=== PATIENT | female | born 1950 | race Hispanic/Latino ===

== ENCOUNTER 2018-02-06 12:55 | Observation (INO) | payer MEDICARE ==
[2018-02-06] MEDS ORDERED: ASPIRIN 81 MG CHEWABLE TABLET ONE (13:46)
[2018-02-06 13:56] LABS: Absolute Lymphocytes (CBC) 1.8 K/uL (0.7-4.9); Absolute Monocytes 0.3 K/uL (0.1-1.3); Absolute Neutrophil 2.9 K/uL (1.8-8.0); Basophils % 1.1 % (0-1.3); Eosinophils % 2.3 % (0-4.4); Hematocrit 42.2 % (36.0-45.0); Lymphocytes % 34.8 % (15.3-44.8); MCH 29.4 pg (27.0-35.0); MCV 86.9 fL (80-100); MPV 9.2 fL (7.6-11.3); Monocytes % 5.2 % (3.3-12.3); RBC Red Blood Cell Count 4.85 M/uL (3.86-4.86)
--- NOTE | 2018-02-06 13:56 | RAD REPORT ---
EXAM DESCRIPTION: RAD - Chest Single View - 02/06/2018 1:50 pm CLINICAL HISTORY: CHEST PAIN Chest pain. COMPARISON: CHEST SINGLE VIEW dated 05/20/2011; CHEST SINGLE VIEW dated 04/23/2009 FINDINGS: Portable technique limits examination quality. The lungs are grossly clear. The heart is normal in size. No displaced fractures. IMPRESSION: No acute intrathoracic process suspected.
[2018-02-06 14:08] LABS: ALT/SGPT 22 U/L (12-78); AST/SGOT 18 U/L (15-37); Alkaline Phosphatase 88 U/L (45-117); BUN Blood Urea Nitrogen 14 mg/dL (7-18); Bicarbonate 27 mmol/L (21-32); Bilirubin Direct 0.2 mg/dL (0-0.2); Bilirubin Total 0.6 mg/dL (0.2-1.0); CKMB Creatine Kinase MB 1.3 ng/mL (0.3-3.6); Creatine Phosphokinase 88 U/L (26-192); Glucose Level 96 mg/dL (74-106); Magnesium 2.5 mg/dL (1.8-2.4); NT PRO-BNP 73 pg/mL (<125); Protein, Total 7.8 g/dL (6.4-8.2); Sodium Level 140 mmol/L (136-145); Troponin (Emerg Dept Use Only) < 0.02 ng/mL (0.0-0.045)
[2018-02-06 14:25] LABS: Protime INR 1.02
--- NOTE | 2018-02-06 14:32 | EDPHYS ---
Physician Documentation [facility] Name: Jenn Woods Age: 67 yrs Sex: Female : 1950 Arrival Date: 02/06/2018 Time: 13:00 Bed 27 Private MD: None, None ED Physician Merry Neely HPI: 02/06 13:18 This 67 yrs old Female presents to ER via Ambulatory with complaints of Chest ma2 Pain. 13:18 The patient or guardian reports chest pain that is located primarily in the substernal ma2 area. Onset: gradually, 1 hour(s) ago. The pain does not radiate. Associated signs and symptoms: Pertinent negatives: abdominal pain, diaphoresis, headache, lower extremity pain, nausea, shortness of breath, syncope, vomiting. The chest pain is described as a pressure. Duration: The patient or guardian reports multiple episodes, that wax and wane. Severity of pain: At its worst the pain was moderate. The patient has not experienced similar symptoms in the past. Historical: - Allergies: 13:08 No Known Allergies; aa5 - Home Meds: 13:47 unknown cholesterol medication [Active]; aspirin 81 mg Oral TbEC [Active]; kr2 - PMHx: 13:08 PRE DIABETIC; Arthritis; High Cholesterol; aa5 - PSHx: 13:08 c section; saundra knees; aa5 - Immunization history:: Adult Immunizations unknown. - Social history:: Patient/guardian denies using alcohol, street drugs, The patient lives with family, Smoking status: Patient/guardian denies using tobacco. - Ebola Screening: : No symptoms or risks identified at this time. - Family history:: pertinent for heart disease. ROS: 13:18 Constitutional: Negative for fever, chills, and weight loss, Abdomen/GI: Negative for ma2 abdominal pain, nausea, diarrhea, and constipation, MS/Extremity: Negative for injury and deformity. 13:18 Cardiovascular: Positive for chest pain, Negative for edema, palpitations, paroxysmal nocturnal dyspnea, acute changes. 13:18 All other systems are negative. Exam: 13:18 Constitutional: This is a well developed, well nourished patient who is awake, alert, ma2 and in no acute distress. Neck: Trachea midline, no thyromegaly or masses palpated, and no cervical lymphadenopathy. Supple, full range of motion without nuchal rigidity, or vertebral point tenderness. No Meningismus. Chest/axilla: Normal chest wall appearance and motion. Nontender with no deformity. No lesions are appreciated. Cardiovascular: Regular rate and rhythm with a normal S1 and S2. No gallops, murmurs, or rubs. Normal PMI, no JVD. No pulse deficits. Respiratory: Lungs have equal breath sounds bilaterally, clear to auscultation and percussion. No rales, rhonchi or wheezes noted. No increased work of breathing, no retractions or nasal flaring. MS/ Extremity: Pulses equal, no cyanosis. Neurovascular intact. Full, normal range of motion. Neuro: Awake and alert, GCS 15, oriented to person, place, time, and situation. Cranial nerves II-XII grossly intact. Motor strength 5/5 in all extremities. Sensory grossly intact. Cerebellar exam normal. Normal gait. Vital Signs: 13:04 BP 156 / 69; Pulse 65; Resp 16 S; Temp 98.1(O); Pulse Ox 95% on R/A; Weight 81.65 kg aa5 (R); Height 5 ft. 3 in. (160.02 cm) (R); Pain 4/10; 14:16 BP 121 / 80; Pulse 68; Resp 17; Pulse Ox 99% on R/A; kr2 15:43 BP 123 / 66; Pulse 58; Resp 16; Temp 98.2; Pulse Ox 99% on R/A; kr2 13:04 Body Mass Index 31.89 (81.65 kg, 160.02 cm) aa5 MDM: 13:08 Patient medically screened. ma2 13:18 Differential diagnosis: acute pericarditis, anxiety, coronary artery disease chest wall ma2 pain, gastroesophageal reflux disease (GERD). HEART Score: History: Highly Suspicious (2), ECG: Age: > or = 65 years (2), Risk Factors: > or = 3 Risk factors for atherosclerotic disease (2), [Hypertension] [DM] [+ Family HX] Total Score =. The patient was given aspirin in the Emergency Department. NICK Risk Score: 1 - patient's age is greater or equal to 65 years, 1 - Three or more CAD risk factors. Data reviewed: vital signs, nurses notes, EMS record, EKG, radiologic studies. Counseling: I had a detailed discussion with the patient and/or guardian regarding: the historical points, exam findings, and any diagnostic results supporting the discharge/admit diagnosis, the presence of at least one elevated blood pressure reading (>120/80) during this emergency department visit. 02/06 13:18 Order name: Basic Metabolic Panel; Complete Time: 14:27 ma2 02/06 13:18 Order name: CBC with Diff; Complete Time: 14:04 ma2 02/06 13:18 Order name: Ckmb; Complete Time: 14:27 ma2 02/06 13:18 Order name: CPK; Complete Time: 14:27 ma2 02/06 13:18 Order name: LFT's; Complete Time: 14:27 ma2 02/06 13:18 Order name: Magnesium; Complete Time: 14:27 ma2 02/06 13:18 Order name: NT PRO-BNP; Complete Time: 14:27 ma2 02/06 13:18 Order name: PT-INR ny2 02/06 13:18 Order name: Ptt, Activated ma2 02/06 13:18 Order name: Troponin (emerg Dept Use Only); Complete Time: 14:27 ma2 02/06 14:35 Order name: Basic Metabolic Panel EDMS 02/06 14:35 Order name: Basic Metabolic Panel EDMS 02/06 14:35 Order name: CBC with Automated Diff EDMS 02/06 14:35 Order name: CBC with Automated Diff EDMS 02/06 13:18 Order name: XRAY Chest (1 view); Complete Time: 14:04 ny2 02/06 13:18 Order name: EKG; Complete Time: 13:19 ny2 02/06 13:18 Order name: Cardiac monitoring; Complete Time: 13:38 ma2 02/06 13:18 Order name: EKG - Nurse/Tech; Complete Time: 13:38 ny2 02/06 13:18 Order name: IV Saline Lock; Complete Time: 13:38 ma2 02/06 13:18 Order name: Labs collected and sent; Complete Time: 13:38 ma2 02/06 13:18 Order name: O2 Per Protocol; Complete Time: 13:39 ma2 02/06 14:35 Order name: Regular EDMS 02/06 14:35 Order name: EKG Electrocardiogram EDMS 02/06 14:35 Order name: EKG Electrocardiogram EDMS 02/06 14:35 Order name: EKG Electrocardiogram [facility] 02/06 14:35 Order name: EKG Electrocardiogram [facility] 02/06 14:35 Order name: Troponin I [facility] 02/06 14:35 Order name: Troponin I [facility] 02/06 14:35 Order name: Troponin I [facility] 02/06 13:18 Order name: O2 Sat Monitoring; Complete Time: 13:39 ma2 Administered Medications: 13:42 Drug: Aspirin Chewable Tablet 324 mg Route: PO; kr2 14:30 Follow up: Response: No adverse reaction kr2 Disposition: 02/06/18 14:31 Hospitalization ordered by Anthony Baez for Observation. Preliminary diagnosis is Chest pain, unspecified. - Bed requested for Telemetry/MedSurg (observation). - Status is Observation. kr2 - Condition is Stable. - Problem is new. - Symptoms are unchanged. UTI on Admission? No Signatures: Dispatcher [employer] [facility] BeccadanielLeela Audri, RN RN aa5 Apryl Barros RN RN kr2 Merry Neely MD MD ma2 Corrections: (The following items were deleted from the chart) 15:19 14:31 Hospitalization Ordered by Anthony Baez DO for Observation. Preliminary bd diagnosis is Chest pain, unspecified. Bed requested for Telemetry/MedSurg (observation). Status is Observation. Condition is Stable. Problem is new. Symptoms are unchanged. UTI on Admission? No. ma2 16:06 15:19 02/06/2018 14:31 Hospitalization Ordered by Anthony Baez DO for Observation. kr2 Preliminary diagnosis is Chest pain, unspecified. Bed requested for Telemetry/MedSurg (observation). Status is Observation. Condition is Stable. Problem is new. Symptoms are unchanged. UTI on Admission? No. bd
--- NOTE | 2018-02-06 14:32 | ER ---
Nurse's Notes [facility] Name: Jenn Woods Age: 67 yrs Sex: Female : 1950 Arrival Date: 02/06/2018 Time: 13:00 Bed 27 Private MD: None, None Diagnosis: Chest pain, unspecified Presentation: 02/06 13:03 Presenting complaint: Patient states: mid-sternal chest pressure radiating to back that aa5 began 4 days ago. 13:03 Transition of care: patient was not received from another setting of care. Onset of aa5 symptoms was January 2018. Risk Assessment: Do you want to hurt yourself or someone else? Patient reports no desire to harm self or others. Initial Sepsis Screen: Does the patient meet any 2 criteria? No. Patient's initial sepsis screen is negative. Does the patient have a suspected source of infection? No. Patient's initial sepsis screen is negative. Care prior to arrival: None. 13:03 Method Of Arrival: Ambulatory aa5 13:03 Acuity: KRISTINA 3 aa5 Historical: - Allergies: 13:08 No Known Allergies; aa5 - Home Meds: 13:47 unknown cholesterol medication [Active]; aspirin 81 mg Oral TbEC [Active]; kr2 - PMHx: 13:08 PRE DIABETIC; Arthritis; High Cholesterol; aa5 - PSHx: 13:08 c section; saundra knees; aa5 - Immunization history:: Adult Immunizations unknown. - Social history:: Patient/guardian denies using alcohol, street drugs, The patient lives with family, Smoking status: Patient/guardian denies using tobacco. - Ebola Screening: : No symptoms or risks identified at this time. - Family history:: pertinent for heart disease. Screenin:10 Abuse screen: Denies threats or abuse. Denies injuries from another. Nutritional kr2 screening: No deficits noted. Tuberculosis screening: No symptoms or risk factors identified. Fall Risk None identified. Assessment: 13:10 General: Appears in no apparent distress. uncomfortable, well groomed, well developed, kr2 well nourished, Behavior is calm, cooperative, appropriate for age. Pain: Complains of pain in mid-sternal area Pain radiates to left scapular area Pain currently is 3 out of 10 on a pain scale. Quality of pain is described as pressure, Pain began 4 days ago Is continuous, Alleviated by nothing. Neuro: Level of Consciousness is awake, alert, obeys commands, Oriented to person, place, time, situation. Cardiovascular: Capillary refill < 3 seconds in bilateral fingers Patient's skin is warm and dry. Respiratory: Airway is patent Respiratory effort is even, unlabored, Respiratory pattern is regular, symmetrical. GI: Abdomen is flat, non-distended, Bowel sounds present X 4 quads. : Denies burning with urination. EENT: Oral mucosa is moist. Derm: Skin is intact, is healthy with good turgor, Skin is pink, warm \T\ dry. Musculoskeletal: Circulation, motion, and sensation intact. 14:16 Reassessment: Patient appears in no apparent distress at this time. Patient and/or kr2 family updated on plan of care and expected duration. Pain level reassessed. Patient is alert, oriented x 3, equal unlabored respirations, skin warm/dry/pink. Patient states feeling better. 15:43 Reassessment: Patient appears in no apparent distress at this time. Patient and/or kr2 family updated on plan of care and expected duration. Pain level reassessed. Patient is alert, oriented x 3, equal unlabored respirations, skin warm/dry/pink. Report called to receiving nurse Jones Mariano RN. Vital Signs: 13:04 BP 156 / 69; Pulse 65; Resp 16 S; Temp 98.1(O); Pulse Ox 95% on R/A; Weight 81.65 kg aa5 (R); Height 5 ft. 3 in. (160.02 cm) (R); Pain 4/10; 14:16 BP 121 / 80; Pulse 68; Resp 17; Pulse Ox 99% on R/A; kr2 15:43 BP 123 / 66; Pulse 58; Resp 16; Temp 98.2; Pulse Ox 99% on R/A; kr2 13:04 Body Mass Index 31.89 (81.65 kg, 160.02 cm) aa5 ED Course: 13:00 Patient arrived in ED. mr 13:00 None, None is Private Physician. mr 13:03 Apryl Barros, MOO is Primary Nurse. kr2 13:03 Arm band placed on Patient placed in an exam room, on a stretcher. aa5 13:08 Merry Neely MD is Attending Physician. ma2 13:09 Triage completed. aa5 13:12 EKG done, by radio frequency technician. reviewed by Michi Anderson MD. 3 13:15 Patient has correct armband on for positive identification. Placed in gown. Bed in low kr2 position. Call light in reach. Side rails up X 1. Adult w/ patient. crystal growing technician on. Pulse ox on. NIBP on. 13:15 Inserted saline lock: 20 gauge in right antecubital area, using aseptic technique. kr2 Blood collected. Patient maintains SpO2 saturation greater than 95% on room air. 13:50 XRAY Chest (1 view) In Process Unspecified. EDMS 14:30 Anthony Baez DO is Hospitalizing Provider. ma2 15:40 No provider procedures requiring assistance completed. Patient admitted, IV remains in kr2 place. Administered Medications: 13:42 Drug: Aspirin Chewable Tablet 324 mg Route: PO; kr2 14:30 Follow up: Response: No adverse reaction kr2 Outcome: 16:05 Admitted to Tele accompanied by nurse, via wheelchair, room 425, with chart, Report kr2 called to Jones Mariano RN 16:05 Condition: stable 16:05 Instructed on the need for admit, Demonstrated understanding of instructions. 16:06 Patient left the ED. kr2 Signatures: Dispatcher [employer] Sofy Brewster Audri, RN RN aa5 Apryl Barros RN RN kr2 Merry Neely MD MD ky2 Ammy Barrett 3 Corrections: (The following items were deleted from the chart) 15:40 14:31 Decision to Hospitalize by Provider. ma2 kr2
[2018-02-06] MEDS ORDERED: ACETAMINOPHEN 500 MG TAB PO PRN (14:33)
[2018-02-06] MEDS ORDERED: ALPRAZOLAM 0.25 MG TABLET PO PRN (14:44)
[2018-02-06] MEDS ORDERED: HYDRALAZINE HCL 20 MG/ML VIAL IV PRN (14:44)
[2018-02-06] MEDS ORDERED: NITROGLYCERIN 0.4 MG/TAB SL PRN (14:44)
[2018-02-06] MEDS ORDERED: ONDANSETRON 4 MG/2 ML VIAL IV PRN (14:44)
[2018-02-06] MEDS ORDERED: TRAMADOL HCL 50 MG TAB PO PRN (14:44)
--- NOTE | 2018-02-06 15:20 | P.HP ---
Certification for Inpatient Patient admitted to: Observation With expected LOS: <2 Midnights Patient will require the following post-hospital care: None Practitioner: I am a practitioner with admitting privileges, knowledge of patient current condition, hospital course, and medical plan of care. Services: Services provided to patient in accordance with Admission requirements found in Title 42 Section 412.3 of the Code of Federal Regulations Patient History Date of Service: 02/06/18 Primary Care Provider: Edgar García Reason for admission: Chest pain History of Present Illness: 67-year-old female presented to the emergency room with chest pain. Chest pain has been occurring over the last 4 days. It comes and goes. It is mainly to the substernal region. It feels more like a pressure like sensation. It is associated with headaches, shortness of breath and palpitations. She reports no nausea. Patient with no prior history of diabetes or hypertension. Patient reports that she has had increased anxiety with some family dysfunction going on. In the ER patient evaluated. Initial blood pressure was slightly elevated. Overall CBC unremarkable. Sodium 140, potassium 4.0. Initial cardiac enzymes unremarkable with a troponin of less than 0.02. No significant EKG changes noted. Chest x-ray unremarkable. Patient was admitted for observation. When I saw the patient the ER, she appeared stable. No chest pain was noted. She was given aspirin in the emergency room. She is a former smoker. Patient primarily takes multi vitamin, fish oil, pro biotics and Claritin. Patient drinks on occasion. Family history of hypertension. Allergies No Known Allergies Allergy (Unverified 06/21/17 10:33) Home medications list reviewed: Yes - Past Medical/Surgical History Diabetic: No -: Hyperlipidemia -: -: Bilateral knee surgery Psychosocial/ Personal History: Patient is . She has 4 children. She works as a under ground miner. - Family History Mother -: Hypertension - Social History Smoking Status: Former smoker Alcohol use: Yes CD- Drugs: No Caffeine use: Yes Place of Residence: Home Review of Systems General: As per HPI Eyes: Unremarkable ENT: Unremarkable Respiratory: Shortness of Breath, As per HPI Cardiovascular: Chest Pain, Palpitations, Light Headedness, As per HPI Gastrointestinal: Unremarkable Genitourinary: Unremarkable Musculoskeletal: Unremarkable Integumentary: Unremarkable Neurological: Unremarkable Lymphatics: Unremarkable Physical Examination - Physical Exam General: Alert, In no apparent distress, Oriented x3, Cooperative HEENT: Atraumatic, Normocephalic, PERRLA, Mucous membr. moist/pink Neck: Supple, No Thyromegaly Respiratory: Clear to auscultation bilaterally, Normal air movement Cardiovascular: Normal pulses, Regular rate/rhythm Gastrointestinal: Normal bowel sounds, Soft and benign, Non-distended, No tenderness, No masses, No rebound, No guarding Musculoskeletal: No erythema, No tenderness, No warmth Integumentary: No tenderness/swelling, No erythema, No warmth, No cyanosis Neurological: Normal speech, Normal strength at 5/5 x4 extr, Normal tone, Normal affect Lymphatics: No axilla or inguinal lymphadenopathy - Studies Laboratory Data (last 24 hrs) 02/06/18 13:15: PT 12.0, INR 1.02, APTT 35.3 02/06/18 13:15: WBC 5.1, Hgb 14.3, Hct 42.2, Plt Count 272 02/06/18 13:15: Sodium 140, Potassium 4.0, BUN 14, Creatinine 0.80, Glucose 96, Magnesium 2.5 H, Total Bilirubin 0.6, AST 18, ALT 22, Alkaline Phosphatase 88 Assessment and Plan - Plan Impression: Chest pain, atypical. Slightly elevated blood pressure without history of hypertension Hyperlipidemia Former tobacco use Anxiety Plan: Patient will be admitted for observation to further assess her chest pain. Likely atypical. Risk factors include age, female and family history of hypertension. Will continue to monitor cardiac enzymes. Will check echocardiogram. Cardiology consulted to further assess. Patient may require cardiac stress tests versus outpatient stress test if cardiac enzymes unremarkable. Will monitor her blood pressures closely if elevated may need to start medication. Patient started on statin medication. Will check lipid panel. It is been quite some time since the patient last smoked. She continues to do well on this. Patient reports anxiety. Some family dysfunction noted counseling. I will turn the service over to Dr. Wild tomorrow. I will go over the plan of care with her. Discharge Plan: Home Plan to discharge in: 24 Hours - Advance Directives Does patient have a Living Will: No Does patient have a Durable POA for Healthcare: No - Code Status/Comfort Care Code Status Assessed: Yes (Patient full code) Time Spent Managing Pts Care (In Minutes): 55
[2018-02-06] MEDS: ENOXAPARIN 40 MG/0.4 ML SQ SCH (17:02)
[2018-02-06] MEDS ORDERED: ATORVASTATIN 40 MG TAB PO SCH (21:00)
--- NOTE | 2018-02-07 00:34 | EKG ---
Test Date: 2018-02-06 Test Time: 13:08:55 Linoleum Tile Floor Layer: VIRAJ MEASUREMENT RESULTS: Intervals: Rate: 62 IL: 170 QRSD: 84 QT: 418 QTc: 424 [place]: P: 24 IL: 170 QRS: -21 T: 5 INTERPRETIVE STATEMENTS: Normal sinus rhythm Inferior infarct, age undetermined Abnormal ECG Compared to ECG 05/20/2011 04:30:39 Myocardial infarct finding now present Electronically Signed On 02-07-18 00:32:10 CDT by Tre Cooper
[2018-02-07 04:28] LABS: Absolute Lymphocytes (CBC) 2.4 K/uL (0.7-4.9); Absolute Monocytes 0.4 K/uL (0.1-1.3); Absolute Neutrophil 2.8 K/uL (1.8-8.0); Basophils % 0.7 % (0-1.3); Eosinophils % 4.6 % (0-4.4); Hematocrit 38.9 % (36.0-45.0); Lymphocytes % 40.8 % (15.3-44.8); MCH 29.9 pg (27.0-35.0); MCV 87.6 fL (80-100); MPV 8.9 fL (7.6-11.3); Monocytes % 7.3 % (3.3-12.3); RBC Red Blood Cell Count 4.44 M/uL (3.86-4.86)
[2018-02-07 04:53] LABS: BUN Blood Urea Nitrogen 18 mg/dL (7-18); Bicarbonate 28 mmol/L (21-32); CKMB Creatine Kinase MB < 1.0 ng/mL (0.3-3.6); Creatine Phosphokinase 63 U/L (26-192); Glucose Level 99 mg/dL (74-106); HDL Cholesterol 45 mg/dL (40-60); LDL Cholesterol, Calculated 151 (<130); Magnesium 2.4 mg/dL (1.8-2.4); Potassium 4.1 mmol/L (3.5-5.1); Sodium Level 142 mmol/L (136-145); Troponin I < 0.02 ng/mL (0.0-0.045)
[2018-02-07 05:45] LABS: Urine Appearance CLEAR; Urine Bilirubin NEGATIVE (NEG); Urine Blood TRACE (NEG); Urine Color YELLOW; Urine Glucose NEGATIVE (NEG); Urine Microscopic Reflex ORDER UMIC; Urine Protein NEGATIVE (NEG); Urine Urobilinogen 0.2 mg/dL (0.2-1.0); Urine pH 6.5 (5.0-7.0)
[2018-02-07 05:50] LABS: Urine Bacteria <20 /HPF (<20); Urine Culture Reflex Order REFLEXED; Urine RBC <5 /HPF (NONE SEEN)
--- NOTE | 2018-02-07 07:44 | ECHO ---
HEIGHT: 5 ft 3 in WEIGHT: 176 lb 3.2 oz DATE OF STUDY: 02/06/[address]: Anthony Baez DO 2-DIMENSIONAL: YES M.MODE: YES DOPPLER: YES COLOR FLOW: YES TDS: PORTABLE: DEFINITY: BUBBLE STUDY: DIAGNOSIS: CHEST PAIN CARDIAC HISTORY: CATHERIZATION: NO SURGERY: NO PROSTHETIC VALVE: NO PACEMAKER: NO MEASUREMENTS (cm) DIASTOLIC (NORMALS) SYSTOLIC (NORMALS) IVSd 0.9 (0.6-1.2) LA Diam 3.5 (1.9-4.0) LVEF 66% LVIDd 4.2 (3.5-5.7) LVIDs 2.7 (2.0-3.5) %FS 36% LVPWd 0.9 (0.6-1.2) Ao Diam 2.3 (2.0-3.7) 2 DIMENSIONAL ASSESSMENT: RIGHT ATRIUM: NORMAL LEFT ATRIUM: NORMAL RIGHT VENTRICLE: NORMAL LEFT VENTRICLE: NORMAL TRICUSPID VALVE: NORMAL MITRAL VALVE: NORMAL PULMONIC VALVE: NORMAL AORTIC VALVE: NORMAL PERICARDIAL EFFUSION: NONE AORTIC ROOT: NORMAL LEFT VENTRICULAR WALL MOTION: NORMAL DOPPLER/COLOR FLOW: MILD TRICUSPID REGURGITATION COMMENTS: MILD TRICUSPID REGURGITATION. NORMAL LEFT VENTRICULAR SIZE AND FUNCTION. NO WALL MOTION ABNORMALITY. NO EFFUSION. TECHNOLOGIST: LOUIE FAJARDO
[2018-02-07] MEDS ORDERED: ASPIRIN EC 81 MG TAB PO SCH (09:00)
[2018-02-07] MEDS ORDERED: LORATADINE 10 MG TAB PO SCH (09:00)
[2018-02-07] MEDS ORDERED: REGADENOSON 0.4 MG/5 ML SYR IV ONE (09:20)
--- NOTE | 2018-02-07 11:01 | EKG ---
Test Date: 2018-02-07 Test Time: 08:16:07 Antichecking Iron Worker: MARIAA MEASUREMENT RESULTS: Intervals: Rate: 54 SC: 180 QRSD: 80 QT: 440 QTc: 417 [place]: P: 55 SC: 180 QRS: 8 T: 44 INTERPRETIVE STATEMENTS: Sinus bradycardia Otherwise normal ECG Compared to ECG 02/06/2018 13:08:55 Sinus rhythm no longer present Myocardial infarct finding no longer present Electronically Signed On 02-07-18 11:00:04 CDT by Tre Cooper
--- NOTE | 2018-02-07 13:00 | RAD REPORT ---
EXAM DESCRIPTION: NM - Rest Stress Cardiac Imaging - 02/07/2018 12:55 pm CLINICAL HISTORY: Chest pain. COMPARISON: None. TECHNIQUE: The patient was administered approximately 10mCi of Tc 99m Sestamibi prior to resting SPE CT imaging of the heart. The patient was then administered approximately 30 mCi of Tc 99m Sestamibi f ollowing exercise or pharmacologic stress. Multiplanar SPECT images were reviewed. FINDINGS: There is uniformity of radiotracer uptake involving the entire left ventricular myocardiu m on rest and stress images The left ventricular ejection fraction equals 72% IMPRESSION: Negative for a myocardial perfusion defect
[2018-02-07] MEDS: ENOXAPARIN 40 MG/0.4 ML SQ SCH (13:02)
--- NOTE | 2018-02-07 17:45 | TREADPHA ---
DX: CHEST PAIN Date of Study: 02/07/2018 Ht: 5 3 Wt: 176 lb 3.2 oz Consulting Physician: ANDREIA MEDICATIONS: TYLENOL, ASPIRIN, XANAX, LIPITOR, LOVENOX, APRESOLINE, NITROSTAT, ULTRAM. HISTORY: 67 YEAR OLD FEMALE WITH COMPLAINTS OF CHEST PAIN. MEDICAL HISTORY: HIGH CHOLESTEROL, PRE DIABETES MELLITUS. PHYSICIAL EXAMINATION: RESTING B.P.: 136/72 RESTING H.R.: 59 RESTING EKG: NORMAL PROTOCOL: LEXISCAN EXERCISE TIME: 3:30 B.P. AT PEAK STRESS: 107/68 IMPRESSION: LEXISCAN INJECTED, CARDIOLITE INJECTED PER PROTOCOL SEE NUCLEAR MEDICINE REPORT. NO SUPRAVENTRICULAR TACHYCARDIA. NO VENTRICULAR TACHYCARDIA. NO PREMATURE VENTRICULAR COMPLEXS. DENIED CHEST PAIN.
--- NOTE | 2018-02-08 | CON ---
Date of Consultation: 02/07/[address] Baez on 02/06/2018. I saw the patient on 02/07/2018. Reason For Consultation: Chest pain. History Of Present Illness: Ms. Woods is a 67-year-old woman, has a history of pre diabetes, choles terol, and arthritis. She came in with chest heaviness and headache that happened at the same time. She has been under a lot of stress, has had family recently. Her son was arrested recently. Denied PND, orthopnea, pedal edema, palpitation, or syncope. By the time I saw her, all her workup i ncluding chest x-ray, CPK, MBs, troponin, and BNP were all negative. Allergies: NONE. Review of Systems: Negative. Social History: Negative. Family History: Negative. Medications: At home include only vitamins and aspirin. Physical Examination: Vital Signs: Stable. She was afebrile. HEENT: Negative. Neck: Supple without any bruit, lymphadenopathy, JVD, or thyromegaly. Chest: Clear to auscultation and percussion. Cardiac: Revealed a regular rhythm and rate without any murmurs, gallops, or rubs. Abdomen: Benign. Extremities: Revealed no clubbing, cyanosis, or edema. Diagnostic Data: As stated earlier. Impression And Plan: Atypical chest pain, most likely gastroesophageal reflux disease and may be rel ated to hypertension. I think she needs to have an echocardiogram and Lexiscan done before we make a ny further decisions. She does have some risk factors including dyslipidemia, pre diabetes. Both of those are well controlled at this point. PAUL/RANDAL Voice ID: [id number] Report ID: [id number]
--- NOTE | 2018-02-08 06:42 | DS ---
Date of Discharge: 02/07/2018 Code Status: Full code. Consultants: Dr. Cooper with Cardiology. Procedures: On 02/07/2018, cardiac stress test negative for any myocardial perfusion defect. Admitting Diagnoses: 1.Chest pain. Acute coronary syndrome ruled out. 2.Adjustment disorder with anxious mood. 3.Obesity, BMI is 31. Discharge Diagnoses: 1.Chest pain. Acute coronary syndrome ruled out. 2.Adjustment disorder with anxious mood. We will give trial of BuSpar. 3.Dyslipidemia. We will continue statin. 4.Obesity, BMI is 31. 5.Elevated blood pressure without diagnosis of hypertension, likely related to chest tightness and a nxiety. Blood pressures now within normal range. Hospital Course: The patient is a 67-year-old female with no significant past medical history, comes in with chest tightness. The patient does report significant social stressors with her son as well as her grandson. Reports that she has been under a lot of stress recently in her life, multiple epis odes of crying and stress leading to discomfort in her chest as well as feeling very anxious about he r situation. The patient was admitted to the hospital for chest pain, rule out ACS. Cardiac troponi n levels were negative; however, her lipid panel did show elevated triglycerides, total cholesterol, and HDL. The patient was started on chest pain guidelines with aspirin and statin. Echocardiogram w as done, which showed EF of 66% and mild tricuspid regurgitation, no wall motion abnormality, no effu christofer. The patient was seen by Dr. Cooper with Cardiology who recommended to have cardiac stress rosalie t, which was negative for myocardial perfusion defect. The patient's symptoms had resolved. She did report some mild headache, which is improving. The patient did have improvement of her symptoms wit h benzodiazepine. The patient likely has atypical chest pain related to generalized anxiety. The pa shelbie will be given trial of BuSpar. The patient, otherwise, is doing well. She was then cleared fo r discharge from Cardiology standpoint. She was sent home in a stable condition. Her blood pressure initially was elevated in the 150s; however, since then has been normal at a level of 120s to one-te ens. The patient will not be discharged on any blood pressure medication as this is likely related t o some transient elevation related to stress and chest tightness. The patient instructed to buy Order Mappero d pressure cuff and to have her blood pressure checked multiple times a day, at different times of , and to keep a log. If it goes above 130 systolic, then she needs to consult with her PCP alana wilkesing initiation of blood pressure medication. She will need a repeat lipid panel check in 3 to 6 mo nths. She is also counseled on lifestyle changes including diet and exercise to lower her cholestero l levels, which are further risk factors for stroke and heart disease. The patient voiced understand ing. She does have obesity and metabolic syndrome. The patient has been discharged home in stable c ondition. Activity: As tolerated. Medications: As per medication reconciliation list. Followup: Follow up with PCP in 2 to 3 days. Follow up with weighter, Dr. Cooper, in 2 to 4 we eks. Return to ER for worsening condition. Diet: Heart healthy. Physical Examination: General: Awake, alert, oriented x3. No acute distress. CV: S1, S2. No murmurs. Respiratory: Moving air well bilaterally. Abdomen: Soft, nontender, nondistended. Positive bowel sounds. Extremities: No clubbing, cyanosis, or edema. Neurologic: Nonfocal. SA/MODL Voice ID: [id number] Report ID: [id number]
== END 2018-02-07 14:33 | disposition home or self-care (01) ==
LOC: ER 12:55 → ERHOLD 14:34 → 4TH 15:43
PROVIDERS: ADMIT Family Medicine; ATTEND Family Medicine
DX: R07.9 Chest pain, unspecified (principal); F43.22 Adjustment disorder with anxiety; E78.5 Hyperlipidemia, unspecified; E66.9 Obesity, unspecified; Z68.31 Body mass index [BMI] 31.0-31.9, adult; R03.0 Elevated blood-pressure reading, without diagnosis of hypertension
CPT/HCPCS: 36415; 71045; 78452; 80048 ×2; 80061; 80076; 82550 ×3; 82553 ×3; 83735 ×2; 83880; 84439; 84443; 84484 ×3; 85025 ×2; 85610; 85730; 87086; 87088; 93005 ×2; 93017; 93306; 99285; A9500; G0378 ×2; J1650 ×2; J2785; 81003; 81015

== ENCOUNTER 2018-06-11 15:18 | Emergency (ER) | payer MEDICARE ==
[2018-06-11] MEDS ORDERED: LIDOCAINE 1% MPF 5 ML VIAL ONE (16:08)
--- NOTE | 2018-06-11 16:08 | ER ---
Nurse's Notes [facility] Name: Jenn Woods Age: 68 yrs Sex: Female : 1950 Arrival Date: 06/11/2018 Time: 15:23 Bed 12 Private MD: Out, [facility] Diagnosis: Laceration without foreign body of left hand Presentation: 06/11 15:25 Presenting complaint: Patient states: Last Tuesday she cut her left thumb, but when aj1 she moves too much it bleeds. Transition of care: patient was not received from another setting of care. Onset of symptoms was May 2018. Risk Assessment: Do you want to hurt yourself or someone else? Patient reports no desire to harm self or others. Initial Sepsis Screen: Does the patient meet any 2 criteria? No. Patient's initial sepsis screen is negative. Does the patient have a suspected source of infection? No. Patient's initial sepsis screen is negative. Care prior to arrival: None. 15:25 Method Of Arrival: Ambulatory aj 15:25 Acuity: KRISTINA 4 aj1 Triage Assessment: 15:28 General: Appears in no apparent distress. comfortable, Behavior is calm, cooperative, aj1 appropriate for age. Pain: Complains of pain in dorsal aspect of proximal phalanx of left thumb Pain currently is 3 out of 10 on a pain scale. Neuro: Level of Consciousness is awake, alert, obeys commands. Cardiovascular: Patient's skin is warm and dry. Respiratory: Airway is patent Respiratory effort is even, unlabored, Respiratory pattern is regular, symmetrical. Musculoskeletal: Range of motion: intact in all extremities. Injury Description: Laceration sustained to left thumb was sustained 4 days. Historical: - Allergies: 15:28 No Known Allergies; aj1 - Home Meds: 15:28 pravastatin oral oral [Active]; aj1 - PMHx: 15:28 Arthritis; High Cholesterol; PRE DIABETIC; aj1 - Immunization history:: Flu vaccine is up to date. - Social history:: Smoking status: Patient/guardian denies using tobacco. - Ebola Screening: : Patient denies travel to an Ebola-affected area in the 21 days before illness onset. Screenin:35 Abuse screen: Denies threats or abuse. Denies injuries from another. Nutritional ss screening: No deficits noted. Tuberculosis screening: No symptoms or risk factors identified. Never had TB. Fall Risk None identified. Assessment: 15:35 General: Appears in no apparent distress. comfortable, Behavior is calm, cooperative. ss Pain: Complains of pain in dorsal aspect of proximal phalanx of left thumb Pain currently is 3 out of 10 on a pain scale. Pain began 5 days ago Is continuous. Neuro: Level of Consciousness is awake, alert, obeys commands, Oriented to person, place, time, situation. Cardiovascular: Capillary refill < 3 seconds is brisk in bilateral fingers. Respiratory: Airway is patent Respiratory effort is even, unlabored, Respiratory pattern is regular, symmetrical. GI: No signs and/or symptoms were reported involving the gastrointestinal system. EENT: Nares are clear Oral mucosa is moist. Throat is clear. Derm: Skin is intact, is healthy with good turgor, Skin is dry, Skin is pink, warm \T\ dry. normal. Musculoskeletal: Circulation, motion, and sensation intact. Range of motion: intact in all extremities, Swelling absent. Injury Description: Avulsion sustained to dorsal aspect of proximal phalanx of left thumb is partial was sustained 5 days. Vital Signs: 15:28 BP 142 / 91; Pulse 71; Resp 18; Temp 98.5; Pulse Ox 96% on R/A; Weight 78.02 kg (R); aj1 Height 5 ft. 5 in. (165.10 cm); Pain 3/10; 15:28 Body Mass Index 28.62 (78.02 kg, 165.10 cm) aj1 ED Course: 15:23 Patient arrived in ED. sb2 15:23 Out, [facility] is Private Physician. sb2 15:27 Triage completed. aj1 15:28 Arm band placed on Patient placed in an exam room. aj1 15:31 Kirk Browning MD is Attending Physician. gs 15:35 Patient has correct armband on for positive identification. Bed in low position. Call ss light in reach. 16:09 Magnolia Sadler, MOO is Primary Nurse. ss 16:15 No provider procedures requiring assistance completed. Patient did not have IV access ss during this emergency room visit. 16:15 Wound care: to avulsion located on dorsal aspect of proximal phalanx of left thumb was ss cleaned with with Hibiclens and saline, Patient tolerated well. non adherent dressing with Coban placed to L thumb. Administered Medications: 16:00 Drug: Lidocaine (1 %) 5 mg {Note: approximately [address] Browning to wound. .} Volume: 5 ml; Route: Infiltration; 16:05 Drug: Tetanus-Diphtheria Toxoid Adult 0.5 ml {Telecommunications Professional: [employer]. Exp: ss 07/13/2020. Lot #: [id number]. } Route: IM; Site: right deltoid; 16:24 Follow up: Response: No adverse reaction; Medication administered at discharge. Outcome: 16:07 Discharge ordered by . 16:23 Discharged to home ambulatory. 16:23 Condition: good 16:23 Discharge instructions given to patient, Instructed on discharge instructions, follow up and referral plans. medication usage, wound care, Demonstrated understanding of instructions, follow-up care, medications, wound care, Prescriptions given X 1. 16:24 Patient left the ED. Signatures: Jazmine Villa RN RN aj1 Magnolia Sadler RN RN Kirk Browning MD MD gs Billeau, Sheri sb2
--- NOTE | 2018-06-11 16:08 | EDPHYS ---
Physician Documentation [facility] Name: Jenn Woods Age: 68 yrs Sex: Female : 1950 Arrival Date: 06/11/2018 Time: 15:23 Bed 12 Private MD: Out, [facility] ED Physician Kirk Browning HPI: 06/11 16:05 This 68 yrs old Female presents to ER via Ambulatory with complaints of Hand gs Injury. 16:05 The patient or guardian reports a laceration. The complaints affect the palmar aspect gs of proximal phalanx of left thumb. Context: cut 4-5 days ago thick flap still bleeding. Associated signs and symptoms: Pertinent negatives: fever, numbness distally, tingling distally. Severity of symptoms: At their worst the symptoms were moderate, in the emergency department the symptoms are unchanged. Historical: - Allergies: 15:28 No Known Allergies; aj1 - Home Meds: 15:28 pravastatin oral oral [Active]; aj1 - PMHx: 15:28 Arthritis; High Cholesterol; PRE DIABETIC; aj1 - Immunization history:: Flu vaccine is up to date. - Social history:: Smoking status: Patient/guardian denies using tobacco. - Ebola Screening: : Patient denies travel to an Ebola-affected area in the 21 days before illness onset. ROS: 16:05 All other systems are negative. gs Exam: 16:05 Constitutional: The patient appears alert, awake. gs 16:05 Musculoskeletal/extremity: Extremities: ROM: full active range of motion, full passive range of motion, Pulses: are normal with no appreciated deficits, Sensation intact. 16:05 Skin: injury, laceration(s), the wound is approximately 2 cm(s), with a depth of .5 cm(s), of the dorsal aspect of proximal phalanx of left thumb. Vital Signs: 15:28 BP 142 / 91; Pulse 71; Resp 18; Temp 98.5; Pulse Ox 96% on R/A; Weight 78.02 kg (R); aj1 Height 5 ft. 5 in. (165.10 cm); Pain 3/10; 15:28 Body Mass Index 28.62 (78.02 kg, 165.10 cm) aj1 Laceration: 16:05 Wound Repair of 2cm ( 0.8in ) subcutaneous laceration to dorsal aspect of proximal gs phalanx of left thumb. Distal neuro/vascular/tendon intact. Anesthesia: Local anesthetic administered with 1% lidocaine. Wound prep: Simple cleansing with hibiclenz. Skin closed with 1 4-0 Prolene using simple sutures and sterile technique. Dressed with 4x4's. Patient tolerated well. MDM: 15:53 Patient medically screened. 16:05 Data reviewed: vital signs, nurses notes. Administered Medications: 16:00 Drug: Lidocaine (1 %) 5 mg {Note: approximately [address] Browning to ss wound. .} Volume: 5 ml; Route: Infiltration; 16:05 Drug: Tetanus-Diphtheria Toxoid Adult 0.5 ml {Job Honer: [employer]. Exp: ss 07/13/2020. Lot #: [id number]. } Route: IM; Site: right deltoid; 16:24 Follow up: Response: No adverse reaction; Medication administered at discharge. Disposition: 06/11/18 16:07 Discharged to Home. Impression: Laceration without foreign body of left hand. - Condition is Stable. - Discharge Instructions: Laceration Care, Adult, Yhmq-[id number]. - Prescriptions for Keflex 500 mg Oral Capsule - take 1 capsule by ORAL route every 12 hours for 5 days; 10 capsule. - Medication Reconciliation Form, Thank You Letter, Antibiotic Education, Prescription Opioid Use form. - Follow up: Emergency Department; When: 7 - 10 days; Reason: Staple/Suture removal. Signatures: Jazmine Villa RN RN aj1 Magnolia Sadler RN RN Kirk Browning MD MD Corrections: (The following items were deleted from the chart) 16:24 16:07 06/11/2018 16:07 Discharged to Home. Impression: Laceration without foreign body ss of left hand. Condition is Stable. Forms are Medication Reconciliation Form, Thank You Letter, Antibiotic Education, Prescription Opioid Use. Follow up: Emergency Department; When: 7 - 10 days; Reason: Staple/Suture removal.
[2018-06-11] MEDS ORDERED: TETANUS & DIPHTHERIA TOX,ADULT 0.5 ML VIAL ONE (16:13)
== END 2018-06-11 16:24 | disposition home or self-care (01) ==
LOC: ER 15:18
PROC: 0JQK0ZZ Repair Left Hand Subcutaneous Tissue and Fascia, Open Approach (ICD-10-PCS; principal; 2018-06-11)
DX: S61.012A Laceration without foreign body of left thumb without damage to nail, initial encounter (principal); E78.00 Pure hypercholesterolemia, unspecified; W45.8XXA Other foreign body or object entering through skin, initial encounter; Y93.9 Activity, unspecified; Y92.9 Unspecified place or not applicable; Z23 Encounter for immunization
CPT/HCPCS: 90714; 99283

== ENCOUNTER 2019-06-17 14:17 | Emergency (ER) | payer MEDICARE ==
[2019-06-17 15:24] LABS: Absolute Lymphocytes (CBC) 1.5 K/uL (0.7-4.9); Basophils % 0.7 % (0-1.3); Hematocrit 42.5 % (36.0-45.0); Lymphocytes % 16.2 % (15.3-44.8); MPV 8.8 fL (7.6-11.3)
[2019-06-17] MEDS ORDERED: LORAZEPAM 1 MG TABLET ONE (15:25)
[2019-06-17 15:46] LABS: Bilirubin Direct 0.1 mg/dL (0-0.2); Bilirubin Total 0.5 mg/dL (0.2-1.0); Protein, Total 7.7 g/dL (6.4-8.2)
[2019-06-17 16:10] LABS: Urine Blood TRACE (NEG); Urine Glucose NEGATIVE (NEG); Urine Protein NEGATIVE (NEG); Urine pH 6.5 (5.0-7.0)
--- NOTE | 2019-06-17 16:14 | RAD REPORT ---
EXAM DESCRIPTION: CT - Head Brain Wo Cont - 06/17/2019 3:21 pm CLINICAL HISTORY: Transient alteration of awareness COMPARISON: None. TECHNIQUE: Axial 5 mm thick images of the head were obtained without IV contrast. All CT scans are performed using dose optimization technique as appropriate and may include automated exposure control or mA/KV adjustment according to patient size. FINDINGS: No intracranial hemorrhage, mass, edema or shift of mid-line structures. No acute infarcti on changes seen. No abnormal extra-axial fluid collections. Ventricles are normal. Mastoid air cells and visualized portions of the paranasal sinuses are clear. No acute bony findings. IMPRESSION: Negative non-contrast CT head examination.
--- NOTE | 2019-06-17 16:17 | EDPHYS ---
Physician Documentation [facility] Name: Jenn Woods Age: 69 yrs Sex: Female : 1950 Arrival Date: 06/17/2019 Time: 14:19 Bed 15 Private MD: ED Physician Merry Neely HPI: 06/17 16:14 This 69 yrs old Female presents to ER via Ambulatory with complaints of ma2 Anxiety, Memory Loss. 16:14 The patient's problem is reported as amnesia . Onset: The symptoms/episode ma2 began/occurred gradually, 1 week(s) ago. Duration: The episode is continuous. Associated signs and symptoms: Pertinent negatives: agitation, blurred vision, combativeness, diaphoresis, dizziness. Severity of symptoms: At their worst the symptoms were very mild in the emergency department the symptoms are unchanged. Historical: - Allergies: 14:32 No Known Allergies; iw - Home Meds: 14:32 turmeric root extract 500 mg oral cap [Active]; Fish Oil oral oral [Active]; Melatonin iw Oral [Active]; - PMHx: 14:32 Arthritis; High Cholesterol; PRE DIABETIC; iw - PSHx: 14:32 Knee surgery; iw 15:38 ; ae4 - Immunization history:: Adult Immunizations up to date. - Social history:: Smoking status: Patient denies any tobacco usage or history of. Patient/guardian denies using alcohol, street drugs, The patient lives with family. - Ebola Screening: : Patient negative for fever greater than or equal to 101.5 degrees Fahrenheit, and additional compatible Ebola Virus Disease symptoms Patient denies exposure to infectious person Patient denies travel to an Ebola-affected area in the 21 days before illness onset No symptoms or risks identified at this time. - Family history:: not pertinent. ROS: 16:14 Constitutional: Negative for fever, chills, and weight loss. ma2 16:14 All other systems are negative. Exam: 16:14 Constitutional: This is a well developed, well nourished patient who is awake, alert, ma2 and in no acute distress. Head/Face: Normocephalic, atraumatic. Eyes: Pupils equal round and reactive to light, extra-ocular motions intact. Lids and lashes normal. Conjunctiva and sclera are non-icteric and not injected. Cornea within normal limits. Periorbital areas with no swelling, redness, or edema. ENT: Nares patent. No nasal discharge, no septal abnormalities noted. Tympanic membranes are normal and external auditory canals are clear. Oropharynx with no redness, swelling, or masses, exudates, or evidence of obstruction, uvula midline. Mucous membranes moist. Neck: Trachea midline, no thyromegaly or masses palpated, and no cervical lymphadenopathy. Supple, full range of motion without nuchal rigidity, or vertebral point tenderness. No Meningismus. Chest/axilla: Normal chest wall appearance and motion. Nontender with no deformity. No lesions are appreciated. Cardiovascular: Regular rate and rhythm with a normal S1 and S2. No gallops, murmurs, or rubs. Normal PMI, no JVD. No pulse deficits. Respiratory: Lungs have equal breath sounds bilaterally, clear to auscultation and percussion. No rales, rhonchi or wheezes noted. No increased work of breathing, no retractions or nasal flaring. Abdomen/GI: Soft, non-tender, with normal bowel sounds. No distension or tympany. No guarding or rebound. No evidence of tenderness throughout. Skin: Warm, dry with normal turgor. Normal color with no rashes, no lesions, and no evidence of cellulitis. MS/ Extremity: Pulses equal, no cyanosis. Neurovascular intact. Full, normal range of motion. Neuro: Awake and alert, GCS 15, oriented to person, place, time, and situation. Cranial nerves II-XII grossly intact. Motor strength 5/5 in all extremities. Sensory grossly intact. Cerebellar exam normal. Normal gait. 16:17 Radiologist reports: nad ma2 Vital Signs: 14:32 BP 135 / 75; Pulse 66; Resp 16; Temp 98.3; Pulse Ox 98% on R/A; Weight 79.38 kg; Height iw 5 ft. 3 in. (160.02 cm); Pain 0/10; 15:16 BP 145 / 100; Pulse 69; Resp 17; Pulse Ox 96% on R/A; ae4 17:05 BP 128 / 76; Pulse 71; Resp 16; Pulse Ox 100% on R/A; Pain 0/10; ae4 14:32 Body Mass Index 31.00 (79.38 kg, 160.02 cm) iw MDM: 14:37 Patient medically screened. ma2 16:14 Differential diagnosis: Dementia, Alzheimer disease, Parkinson disease, drug effects. ma2 Data reviewed: vital signs, nurses notes. Counseling: I had a detailed discussion with the patient and/or guardian regarding: the historical points, exam findings, and any diagnostic results supporting the discharge/admit diagnosis, the presence of at least one elevated blood pressure reading (>120/80) during this emergency department visit, the need for outpatient follow up. Response to treatment: the patient's symptoms have mildly improved after treatment. 06/17 15:08 Order name: Basic Metabolic Panel; Complete Time: 16:05 [facility] 06/17 15:08 Order name: CBC with Diff; Complete Time: 16:05 [facility] 06/17 15:08 Order name: Creatinine for Radiology; Complete Time: 16:05 [facility] 06/17 15:08 Order name: Hepatic Function; Complete Time: 16:05 [facility] 06/17 15:08 Order name: Lipase; Complete Time: 16:05 [facility] 06/17 16:05 Order name: Urine Dipstick--Ancillary (enter results) eb 06/17 15:08 Order name: CT Head Brain wo Cont [facility] 06/17 15:08 Order name: IV Saline Lock; Complete Time: 15:16 [facility] 06/17 15:08 Order name: Labs collected and sent; Complete Time: 15:16 [facility] 06/17 15:08 Order name: Urine Dipstick-Ancillary (obtain specimen); Complete Time: 15:59 ma2 Administered Medications: 15:29 Drug: Ativan 1 mg Route: PO; ae4 17:04 Follow up: Response: Anxiety decreased; Patient appears more relaxed. ae4 Disposition: 06/17/19 16:16 Discharged to Home. Impression: Transient global amnesia. - Condition is Stable. - Discharge Instructions: Generalized Anxiety Disorder. - Prescriptions for buspirone 5 mg Oral tablet - take 1 tablet by ORAL route 2 times per day; 60 tablet. - Medication Reconciliation Form, Thank You Letter, Antibiotic Education, Prescription Opioid Use form. - Follow up: Private Physician; When: Tomorrow; Reason: Continuance of care. Signatures: Dispatcher [employer] Beverly Lazo RN RN iw Alzahri, Mohammad, MD MD ma2 Olayinka, Will, RN RN ae4 Corrections: (The following items were deleted from the chart) 17:06 16:16 06/17/2019 16:16 Discharged to Home. Impression: Transient global amnesia. ae4 Condition is Stable. Prescriptions for buspirone 5 mg Oral tablet - take 1 tablet by ORAL route 2 times per day; 60 tablet. and Forms are Medication Reconciliation Form, Thank You Letter, Antibiotic Education, Prescription Opioid Use. Follow up: Private Physician; When: Tomorrow; Reason: Continuance of care. ma2
--- NOTE | 2019-06-17 16:17 | ER ---
Nurse's Notes [facility] Name: Jenn Woods Age: 69 yrs Sex: Female : 1950 Arrival Date: 06/17/2019 Time: 14:19 Bed 15 Private MD: Diagnosis: Transient global amnesia Presentation: 06/17 14:28 Presenting complaint: Child states: pt does not remember anything that happened iw yesterday, was crying this morning, was asking the same questions over and over, pt accidentally left her grandson in car yesterday and they had to called the police to unlock the door, pt states she does not remember that happening, thinks pt is very anxious has been under a lot of stress lately. Transition of care: patient was not received from another setting of care. Onset of symptoms was June 17, 2019. Risk Assessment: Do you want to hurt yourself or someone else? Patient reports no desire to harm self or others. Initial Sepsis Screen: Does the patient meet any 2 criteria? No. Patient's initial sepsis screen is negative. Does the patient have a suspected source of infection? No. Patient's initial sepsis screen is negative. Care prior to arrival: None. 14:28 Method Of Arrival: Ambulatory iw 14:28 Acuity: KRISTINA 3 iw Historical: - Allergies: 14:32 No Known Allergies; iw - Home Meds: 14:32 turmeric root extract 500 mg oral cap [Active]; Fish Oil oral oral [Active]; Melatonin iw Oral [Active]; - PMHx: 14:32 Arthritis; High Cholesterol; PRE DIABETIC; iw - PSHx: 14:32 Knee surgery; iw 15:38 ; ae4 - Immunization history:: Adult Immunizations up to date. - Social history:: Smoking status: Patient denies any tobacco usage or history of. Patient/guardian denies using alcohol, street drugs, The patient lives with family. - Ebola Screening: : Patient negative for fever greater than or equal to 101.5 degrees Fahrenheit, and additional compatible Ebola Virus Disease symptoms Patient denies exposure to infectious person Patient denies travel to an Ebola-affected area in the 21 days before illness onset No symptoms or risks identified at this time. - Family history:: not pertinent. Screenin:16 Abuse screen: Denies threats or abuse. Nutritional screening: No deficits noted. ae4 Tuberculosis screening: No symptoms or risk factors identified. Fall Risk None identified. Assessment: 15:16 General: Appears comfortable, Behavior is cooperative, anxious, crying, Patient is ae4 emotional, crying on and off. . 15:16 Pain: Denies pain. Neuro: Level of Consciousness is awake, alert, obeys commands, ae4 Oriented to person, place, situation. Neuro: Reports Memory loss of the previous day's activities. Patient also states "I think maybe I was drinking too much" . Cardiovascular: Heart tones S1 S2 present Patient's skin is warm and dry. Respiratory: Airway is patent Breath sounds are clear bilaterally. GI: No signs and/or symptoms were reported involving the gastrointestinal system. : No signs and/or symptoms were reported regarding the genitourinary system. EENT: No signs and/or symptoms were reported regarding the EENT system. Derm: No signs and/or symptoms reported regarding the dermatologic system. Skin is dry, Skin is normal. Musculoskeletal: No signs and/or symptoms reported regarding the musculoskeletal system. 15:52 Reassessment: Patient ambulated to restroom to provide urine sample. Patient ambulated ae4 with a steady gait. 16:30 Reassessment: Patient appears more relaxed, daughters remain at bedside. ae4 17:03 Reassessment: Patient appears in no apparent distress at this time. Patient and/or ae4 family updated on plan of care and expected duration. Pain level reassessed. Patient states feeling better. Patient states symptoms have improved. Vital Signs: 14:32 BP 135 / 75; Pulse 66; Resp 16; Temp 98.3; Pulse Ox 98% on R/A; Weight 79.38 kg; Height iw 5 ft. 3 in. (160.02 cm); Pain 0/10; 15:16 BP 145 / 100; Pulse 69; Resp 17; Pulse Ox 96% on R/A; ae4 17:05 BP 128 / 76; Pulse 71; Resp 16; Pulse Ox 100% on R/A; Pain 0/10; ae4 14:32 Body Mass Index 31.00 (79.38 kg, 160.02 cm) iw ED Course: 14:19 Patient arrived in ED. rg4 14:31 Triage completed. iw 14:37 Merry Neely MD is Attending Physician. ma2 14:41 Will Bhagat, RN is Primary Nurse. ae4 15:16 Bed in low position. Call light in reach. Side rails up X 1. Adult w/ patient. Pulse ox ae4 on. NIBP on. Warm blanket given. 15:20 CT completed. Patient tolerated procedure well. Patient moved back from CT. bq 15:21 CT Head Brain wo Cont In Process Unspecified. EDMS 15:36 Arm band placed on right wrist. ae4 15:50 Initial lab(s) drawn, by me, sent to lab. Inserted saline lock: 20 gauge in right mh5 antecubital area, using aseptic technique. Blood collected. 17:05 No provider procedures requiring assistance completed. IV discontinued, intact, ae4 bleeding controlled, No redness/swelling at site. Pressure dressing applied. Administered Medications: 15:29 Drug: Ativan 1 mg Route: PO; ae4 17:04 Follow up: Response: Anxiety decreased; Patient appears more relaxed. ae4 Intake: Outcome: 16:16 Discharge ordered by . ma2 17:05 Discharged to home ambulatory, with family. ae4 17:05 Condition: stable 17:05 Discharge instructions given to patient, Instructed on discharge instructions, follow up and referral plans. medication usage, Demonstrated understanding of instructions, Prescriptions given X 1. 17:06 Patient left the ED. ae4 Signatures: Dispatcher [employer] Leah Rolle Irene, RN Aline Colin 4 Sofy [facility] Merry Neely MD MD ma2 Elliott, Andrea, RN RN ae4
[2019-06-17 18:32] VITALS: TEMP 98.3
[2019-06-17 18:35] VITALS: BP 128/76; O2SAT 100
== END 2019-06-17 17:06 | disposition home or self-care (01) ==
LOC: ER 14:17
DX: G45.4 Transient global amnesia (principal)
CPT/HCPCS: 36415; 70450; 80048; 80076; 81003; 83690; 85025; 99284